=== PATIENT | female | born 1945 | race Caucasian/White ===

== ENCOUNTER → 2016-09-02 | Outpatient (CLI) | payer OTHER, MEDICARE ==
[2016-09-02 11:22] LABS: BASOPHILS # (AUTO) 0.03 10*3/UL; BASOPHILS % (AUTO) 0.4 % (0-1); EOSINOPHILS % (AUTO) 2.1 % (0-8); HEMATOCRIT 42.9 % (37.0-47.0); IMM GRAN % (AUTO) 0.1 % (0-5); IMM GRAN# (AUTO) 0.01 10*3/UL; LYMPHOCYTES # (AUTO) 1.16 10*3/uL; LYMPHOCYTES % (AUTO) 16.5 % (10-50); MEAN CORPUSCULAR HEMOGLOBIN 31.2 PG (27-31); MEAN CORPUSCULAR HGB CONC 32.6 g/dL (33-37); MEAN PLATELET VOLUME 9.8 FL (7.4-12.2); MONOCYTES # (AUTO) 0.49 10*3/UL (0.3-0.8); NEUTROPHILS % (AUTO) 73.9 % (50-80); RDW COEFFICIENT OF VARIATION 13.9 % (11.5-14.5); RED BLOOD COUNT 4.49 10^6/uL (4.20-5.40); WHITE BLOOD COUNT 7.04 10^3/uL (4.8-10.8)
[2016-09-02 11:26] LABS: PLATELET MORPHOLOGY COMMENT NORMAL MORPHOLOGY (NORM)
[2016-09-02 11:43] LABS: BILIRUBIN,TOTAL 0.4 mg/dL (0.3-1.2); BUN/CREATININE RATIO 11.42 (6-20); CREATININE 0.7 mg/dL (0.50-1.20); POTASSIUM 4.2 meq/L (3.8-5.2); TOTAL PROTEIN 6.7 g/dL (6.1-8.0)
== END ==
LOC: MOB LAB 09:59
PROVIDERS: ATTEND Family Medicine
DX: R30.0 Dysuria (principal); E03.9 Hypothyroidism, unspecified; I10 Essential (primary) hypertension; E87.6 Hypokalemia; R19.4 Change in bowel habit; R51 Headache; R82.99 Other abnormal findings in urine
CPT/HCPCS: 36415; 80053; 82306; 85025; 87077; 87088; 87186 ×2; 99213; G0463

== ENCOUNTER → 2016-10-04 | Outpatient (CLI) | payer OTHER, MEDICARE | LOC: LAB 07:41 | PROVIDERS: ATTEND Family Medicine | DX: E03.9 Hypothyroidism, unspecified (principal) | CPT/HCPCS: 84443 ==

== ENCOUNTER → 2016-11-21 | Outpatient (CLI) | payer OTHER, MEDICARE | LOC: MMPC 09:00 | PROVIDERS: ATTEND Nurse Practitioner Family | DX: M85.88 Other specified disorders of bone density and structure, other site (principal) | CPT/HCPCS: G0439; G0463 ==

== ENCOUNTER → 2016-11-28 | Outpatient (CLI) | payer OTHER, MEDICARE ==
--- NOTE | 2016-11-28 11:58 | DI ---
CT BONE DENSITOMETRY OF THE SPINE AND HIP, 11/28/2016 10:03 AM : Clinical History: Asymptomatic post menopausal patient. Screening. Previous Exam: [address] (QCT) Bone Mineral Densitometry: The [place] scans demonstrate a large left lower abdominal hernia containing a loop of large bowel wi thin the left lower quadrant. Postsurgical changes are seen consistent with prior cholecystectomy. There is mild right hydronephrosis without visible stone. The urinary bladder is unremarkable. Diffus e degenerative changes of the spine are seen. Low dose scans are obtained of the lumbar spine and sampling is obtained through the midbodies of L1 and L2. The average volumetric bone mineral density (BMD) of the lumbar spine is 81.2 mg/cm3. This v alue corresponds to a volumetric T-score of -3.4 and Z-score of -0.08 as assessed by this BMD softwar e. Volumetric 3D QCT and areal DEXA T-scores and Z-scores are not directly equivalent. Using the [employer]'s (ACR) volumetric QCT trabecular spine BMD conversion table that is closel y equivalent to the areal WHO diagnostic categories, this patient falls into the category of osteopen ia. CT X-Ray Absorptiometry (CTXA) Hip Bone Mineral Densitometry: Low dose scans are obtained through the hips for assessment of bone mineral density (BMD) and T-score s and Z-scores of the left hip. Total hip BMD: 0.674 mg/cm2 T-score: -2.1 Z-score: Femoral neck BMD: 0.571 mg/cm2 T-score: -2.0 Z-score: Note: T-scores of the spine and hip exhibit discordant readings approximately 40% of the time in eval uated patients. Changes in BMD determined either by volumetric QCT or areal DEXA are more reliable in assessment of change in a patient's BMD status rather than changes in T-scores. The CTXA hip CT bone mineral density measurements and the resultant T-scores and Z-scores are exact hip DEXA scan equival ents. The femoral neck T-score can be used in the WHO's FRAX program for assessing an untreated patie nt's 10 year fracture risk. READING: Osteopenia of the lumbar spine and left hip.
== END ==
LOC: CT 09:53
PROVIDERS: ATTEND Nurse Practitioner Family
DX: M85.88 Other specified disorders of bone density and structure, other site (principal); Z13.820 Encounter for screening for osteoporosis
CPT/HCPCS: 77078

== ENCOUNTER → 2016-12-05 | Outpatient (CLI) | payer OTHER, MEDICARE | LOC: MMPC 09:00 | PROVIDERS: ATTEND Family Medicine | DX: R51 Headache (principal); F41.1 Generalized anxiety disorder; M79.1 Myalgia; I95.9 Hypotension, unspecified | CPT/HCPCS: 99214; G0463 ==

== ENCOUNTER → 2017-01-09 | Outpatient (CLI) | payer OTHER, MEDICARE | LOC: MMPC 11:11 | PROVIDERS: ATTEND Surgery | DX: K43.2 Incisional hernia without obstruction or gangrene (principal) | CPT/HCPCS: 99213; G0463 ==

== ENCOUNTER 2017-01-24 06:58 | Day surgery (SDC) | payer OTHER, MEDICARE ==
[~2017-01-24 06:58] MED LIST: LIDOCAINE W/ SODIUM BICARB 0.5 ML SYR ONE; Lactated Ringers 1,000 ML PRIMARY IV ONE; ceFAZolin Inj 2gm (Premix) 50 ML IV ONE
[2017-01-24] MEDS ORDERED: ROCURONIUM 10 MG/1 ML - 5 ML VIAL IVP ONE (07:21)
[2017-01-24] MEDS ORDERED: fentaNYL Inj 250 MCG/5 ML VIAL ONE (07:22)
[2017-01-24] MEDS ORDERED: MIDAZOLAM 5 MG/1 ML ONE (07:22)
[2017-01-24] MEDS ORDERED: LIDOCAINE MPF 2% - 5 ML (20 MG/1 ML) ONE (07:22)
[2017-01-24] MEDS ORDERED: BUPivacaine 0.5%/Epi Inj 50 ML VIAL ONE (07:27)
[2017-01-24] MEDS ORDERED: KETOROLAC 30 MG/1 ML VIAL ONE (08:17)
[2017-01-24] MEDS ORDERED: DEXAMETHASONE SOD PHOSPHATE 4 MG/1 ML VIAL ONE (08:17)
[2017-01-24] MEDS ORDERED: ONDANSETRON 4 MG/2 ML VIAL ONE (08:17)
[2017-01-24] MEDS ORDERED: KETAMINE 100 MG/1 ML - 5 ML ONE (08:17)
[2017-01-24] MEDS ORDERED: SUGAMMADEX SODIUM 200 MG/2 ML VIAL IV ONE (09:12)
[2017-01-24] MEDS ORDERED: BUPivacaine Liposome/PF (Exparel) Inj 20ml vial INFIL ONE (09:18)
--- NOTE | 2017-01-24 09:36 | GEN.OPNOTE ---
Operative Note Surgery Date: 01/24/17 Preoperative Diagnosis: Incisional hernia at the prior stoma site. Postoperative Diagnosis: Incisional hernia at the prior stoma site. Procedure: reduction and repair of incisional hernia with Marlex mesh onlay. Surgeon: Edgar Augustine MD Anesthesia Provider: Chilo Patton CRNA Anesthesia Type: General Estimated Blood Loss (mL): 10 Fluids: 1500 mL of crystalloid. 2 g of IV Ancef at the start of the procedure. 15 mg liters of IV Toradol at the end of the procedure. 20 mL of Exparel injected into the wound at the end of the procedure. Pathology: No specimens for pathologic analysis. Indications: Symptomatic incisional hernia at the prior stoma site. Findings: Incisional hernia. Complications: None. Operative Summary: The patient was taken to the operating suite and placed on the operating table in a supine position. Following the induction of general anesthetic the abdomen was prepped and draped in a sterile fashion. A surgical timeout was done. The stoma site scar was excised in elliptical fashion. Electrocautery was used to transect the subcutaneous fat down to the hernia. The hernia was freed circumferentially down to the fascia. The hernia sac was excised. The fascial defect was slightly enlarged. The edges were thin but adequate. The fascia was trimmed back to adequate tissue. The posterior sheath and peritoneum was closed with running #1 Vicryl. The anterior fascia was closed with running #1 Prolene. The subcutaneous tissue was cleared off the fascia anteriorly. There was some thinning of the fascia. An oval shaped piece of Marlex mesh was cut to fit over the repair. It overlapped the midline repair by at least three quarters of an inch in all directions. It was sewn in circumferentially with 2-0 Prolene. Several simple stitches were placed down the middle of the mesh to tack it down. The wound was irrigated. Hemostasis was assured. The space was closed by tacking the subcutaneous fat to the mesh with 2-0 Vicryl. The superficial subcutaneous tissue was closed with 2-0 Vicryl as well. The wound was infiltrated with 20 mL of Exparel. The skin was closed with surgical ana cristina followed by an appropriate dressing. Patient tolerated the entire procedure well without complication. She was taken to outpatient surgery in stable condition. All counts were correct.
[2017-01-24] MEDS ORDERED: NORMAL SALINE 10 ML SYRINGE FLUSH IVP PRN ×2 (09:37→10:35)
[2017-01-24] MEDS ORDERED: MORPHINE SULFATE 2 MG/1 ML IVP PRN (09:37)
[2017-01-24] MEDS ORDERED: ONDANSETRON 4 MG/2 ML VIAL IVP PRN (09:37)
[2017-01-24] MEDS ORDERED: Lactated Ringers 1,000 ML PRIMARY IV SCH ×2 (09:45→10:45)
[2017-01-24] MEDS ORDERED: HYDROmorphone 2 MG/1 ML ONE (09:58)
[2017-01-24] MEDS: oxyCODONE-ACETAMINOPHEN 5-325 TAB PO PRN ×2 (10:11→14:00)
[2017-01-24] MEDS ORDERED: oxyCODONE-ACETAMINOPHEN 5-325 TAB PO ONE ×2 (10:11→14:04)
[2017-01-24] MEDS ORDERED: fentaNYL Inj 100 MCG/2 ML VIAL IVP PRN (10:35)
[2017-01-24] MEDS ORDERED: HYDROmorphone 2 MG/1 ML IVP PRN (10:35)
[2017-01-24] MEDS ORDERED: PROMETHAZINE 25 MG/1 ML VIAL IM PRN (10:35)
[2017-01-24] MEDS ORDERED: Ondansetron ODT Tab 8 MG TAB PO ONE (14:27)
[2017-01-24 14:58] VITALS: RESP 10
[2017-01-24 15:05] VITALS: TEMP 97.7
== END 2017-01-24 14:30 | disposition home or self-care (01) ==
LOC: SDSC 06:58
PROVIDERS: ATTEND Surgery
DX: K43.2 Incisional hernia without obstruction or gangrene (principal)
CPT/HCPCS: 49560; 49568; C9290; J0690; J1100; J1885; J2250; J2405; J2704; J3010; Q0162; J1170; J2001; J7120

== ENCOUNTER → 2017-02-06 | Outpatient (CLI) | payer OTHER, MEDICARE | LOC: MMPC 11:11 | PROVIDERS: ATTEND Surgery | DX: K43.2 Incisional hernia without obstruction or gangrene (principal) ==

== ENCOUNTER → 2017-02-27 | Outpatient (CLI) | payer OTHER, MEDICARE | LOC: MMPC 11:11 | PROVIDERS: ATTEND Surgery | DX: K43.2 Incisional hernia without obstruction or gangrene (principal) ==